=== PATIENT | female | born 1955 | race Caucasian/White ===

== ENCOUNTER 2016-06-04 13:28 | Outpatient (CLI) | payer BC ==
[2016-06-04 14:22] LABS: ALT (SGPT) 15 U/L (0-55); AST (SGOT) 23 U/L (5-34); Alkaline Phosphatase 41 U/L (40-150); Anion Gap 15 mmol/L (10-20); BUN (Urea Nitrogen) 26 mg/dL (9.8-20.1); Bilirubin, Total 0.5 mg/dL (0.2-1.2); Calc. Creatinine Clearance 0 mL/min (70-130); Calcium 9.8 mg/dL (7.8-10.44); Carbon Dioxide 26 mmol/L (23-31); Chloride 103 mmol/L (98-107); Estimated GFR-MDRD 57; Globulin 3.3 g/dL (2.4-3.5); Lipase 28 U/L (8-78); Protein, Total 7.5 g/dL (5.8-8.1)
== END 2016-06-04 13:29 | disposition home or self-care (01) ==
LOC: HPCALD 13:28
PROVIDERS: ATTEND Family Medicine
DX: R10.13 Epigastric pain (principal)
CPT/HCPCS: 36415; 80053; 83690

== ENCOUNTER 2018-09-18 09:01 | Outpatient (CLI) | payer MEDICARE ==
--- NOTE | 2018-09-18 17:35 | ULT ---
THYROID ULTRASOUND: 09/18/18 Ultrasonography of the thyroid was performed in this patient with known thyroid enlargement and multi ple nodules. Comparison was made with the prior ultrasound from December 2012. The gland remains mildly enlarged. Multiple nodules are seen throughout as previously. The right lobe measures 4.6 x 1.9 x 2.5 cm. Once again seen was a larger hypoechoic nodule in the mid dle third of the right lobe with well circumscribed borders. Its measurement today is slightly greate r than 2012 measuring 2.0 x 1.2 x 1.4 cm. Its width is exactly the same as before. Its length is slig htly greater. I see that there has been a biopsy of the nodule several years ago. Multiple smaller no dules are seen scattered throughout the remainder of the lobe, all of which are solid and hypoechoic . The left lobe measures 4.2 x 1.5 x 1.9 cm. Multiple small nodules are seen throughout as before. All have vascular flow. Changes over time are not significant. No surrounding adenopathy was demonstrated. IMPRESSION: 1. Mild thyroid enlargement with multiple nodules, most consistent with a multinodular goiter. 2. The larger nodule in the middle third of the right lobe has increased in size slightly over t he six year interval being closer to 2 cm in length today compared to 1.4 cm before. It still maintai ns characteristics that are more benign than not. Whether the small amount of growth over time is sig nificant or not is unknown. POS: HOME
== END 2018-09-18 09:02 | disposition home or self-care (01) ==
LOC: BURRAD 09:01
PROVIDERS: ATTEND Family Medicine
DX: E04.2 Nontoxic multinodular goiter (principal)
CPT/HCPCS: 76536; 82384; 83835

== ENCOUNTER 2022-03-20 13:41 | Outpatient (CLI) | payer MEDICARE | END 2022-03-20 13:42 | disposition home or self-care (01) | LOC: BURRAD 13:41 | PROVIDERS: ATTEND Physician Assistant | DX: R05.3 Chronic cough (principal) | CPT/HCPCS: 71046 ==